=== PATIENT | male | born 1965 | race Two or more races ===

== ENCOUNTER 2016-10-09 09:39 | Inpatient (IN) | payer MEDICARE, OTHER ==
[~2016-10-09] VITALS: Ht 165.1 cm; Wt 67.8 kg
[~2016-10-09 09:39] MED LIST: BENZ1TAB70 PO; QUET300XR PO
[2016-10-09 09:57] VITALS: BP 155/93
[2016-10-09] MEDS ORDERED: ZOLPIDEM TARTRATE 10 MG TABLET PO PRN (10:15)
[2016-10-09 10:45] VITALS: BP 143/106
[2016-10-09 11:13] VITALS: BP 143/98
[2016-10-09] MEDS: CloNIDine HCL 0.1 MG TABLET PO SCH ×2 (11:19→16:57)
[2016-10-09] MEDS: LORazepam 2 MG TABLET PO PRN (11:21)
[2016-10-09] MEDS: HALOPERIDOL 5 MG TABLET PO PRN (11:21)
[2016-10-09] MEDS ORDERED: PNEUMOCOCCAL VACCINE POLYVALENT 0.5 ML VIAL [PPSV23] IM ONE (12:30)
[2016-10-09 16:17] VITALS: BP 138/86
[2016-10-09] MEDS: QUEtiapine FUMARATE 200 MG TABLET PO SCH (20:27)
[2016-10-10 07:17] VITALS: BP 122/83
[2016-10-10 08:25] VITALS: BP 126/81
[2016-10-10 08:35] LABS: BASOPHILS % (AUTO) 0.6 % (0.0-2.0); EOSINOPHILS % (AUTO) 2.9 % (1.0-6.0); HEMATOCRIT 46.6 % (41-53); HEMOGLOBIN 14.8 g/dL (13.5-17.5); LYMPHOCYTES # (AUTO) 2.2 K/uL (1.0-4.8); MEAN CORPUSCULAR HEMOGLOBIN 31.2 pg (26.0-34.0); MEAN CORPUSCULAR HGB CONC 31.8 G/dL (31.0-37.0); MEAN CORPUSCULAR VOLUME 98 fL (80-100); MONOCYTES # (AUTO) 0.5 K/uL (0.1-1.0); MONOCYTES % (AUTO) 8.3 % (2.0-9.0); NEUTROPHILS # (AUTO) 2.8 K/uL (1.8-7.7); NEUTROPHILS % (AUTO) 49.2 % (40.0-70.0); PLATELET COUNT (AUTO) 233 K/uL (150-450); RED BLOOD CELL COUNT(AUTO) 4.75 MIL/uL (4.50-5.90); RED CELL DISTRIBUTION WIDTH 13.7 % (11.5-14.5); WHITE BLOOD COUNT (AUTO) 5.7 K/uL (4.5-11.0)
[2016-10-10 09:18] LABS: ALANINE AMINOTRANSFERASE 117 U/L (12-78); ALBUMIN 3.6 g/dL (3.4-5.0); ANION GAP 9 mmol/L (8-16); ASPARTATE AMINOTRANSFERASE 65 U/L (15-37); BILIRUBIN,TOTAL 0.6 mg/dL (0.1-1.0); CALCIUM, TOTAL 8.8 mg/dL (8.8-10.5); CARBON DIOXIDE 26 mmol/L (22-29); CHLORIDE 104 mmol/L (98-107); CREATININE 0.94 mg/dL (0.60-1.30); GLOMERULAR FILTR. RATE CALC > 60 mL/min (>60); POTASSIUM 3.9 mmol/L (3.5-5.1); SODIUM SERUM 139 mmol/L (136-145); TOTAL PROTEIN, SERUM 7.1 g/dL (6.4-8.2); UREA NITROGEN, BLOOD 19 mg/dL (7-18)
[2016-10-10] MEDS: NICOTINE 21 MG/24 HOUR PATCH TD SCH (09:46)
[2016-10-10] MEDS: LORazepam 2 MG TABLET PO PRN ×2 (09:46→16:27)
[2016-10-10] MEDS: CloNIDine HCL 0.1 MG TABLET PO SCH ×2 (09:46→16:27)
[2016-10-10 16:00] VITALS: BP 133/87
[2016-10-10] MEDS: HALOPERIDOL 5 MG TABLET PO PRN (16:27)
[2016-10-10] MEDS: QUEtiapine FUMARATE 200 MG TABLET PO SCH (20:53)
[2016-10-11 07:03] VITALS: BP 136/73
[2016-10-11 08:42] VITALS: BP 112/79
[2016-10-11] MEDS: NICOTINE 21 MG/24 HOUR PATCH TD SCH (09:42)
[2016-10-11] MEDS: CloNIDine HCL 0.1 MG TABLET PO SCH ×2 (09:42→16:58)
[2016-10-11] MEDS: ALBUTEROL SULFATE HFA 90 MCG/PUFF 8 GM INHALER IH PRN (09:43)
[2016-10-11 16:00] VITALS: BP 138/78
[2016-10-11] MEDS: LORazepam 2 MG TABLET PO PRN (16:59)
[2016-10-11] MEDS: HALOPERIDOL 5 MG TABLET PO PRN (16:59)
[2016-10-11] MEDS: QUEtiapine FUMARATE 200 MG TABLET PO SCH (20:18)
[2016-10-12 06:08] VITALS: BP 139/83
[2016-10-12 08:03] VITALS: BP 128/83
[2016-10-12] MEDS: NICOTINE 21 MG/24 HOUR PATCH TD SCH (08:35)
[2016-10-12] MEDS: CloNIDine HCL 0.1 MG TABLET PO SCH ×2 (08:35→16:58)
[2016-10-12] MEDS: HALOPERIDOL 5 MG TABLET PO PRN (13:49)
[2016-10-12 16:06] VITALS: BP 140/89
[2016-10-12] MEDS: QUEtiapine FUMARATE 200 MG TABLET PO SCH (20:24)
[2016-10-13 07:16] VITALS: BP 123/68
[2016-10-13 08:36] VITALS: BP 130/85
[2016-10-13] MEDS: NICOTINE 21 MG/24 HOUR PATCH TD SCH (08:53)
[2016-10-13] MEDS: CloNIDine HCL 0.1 MG TABLET PO SCH ×2 (08:53→16:36)
[2016-10-13] MEDS: LORazepam 2 MG TABLET PO PRN ×2 (08:53→16:36)
[2016-10-13] MEDS: HALOPERIDOL 5 MG TABLET PO PRN (08:53)
[2016-10-13] MEDS: NICOTINE 14 MG/24 HOUR PATCH TD SCH (10:11)
[2016-10-13 16:09] VITALS: BP 135/82
[2016-10-13] MEDS: QUEtiapine FUMARATE 200 MG TABLET PO SCH (20:14)
[2016-10-14 06:08] VITALS: BP 139/98
[2016-10-14 08:30] VITALS: BP 127/83
[2016-10-14] MEDS: CloNIDine HCL 0.1 MG TABLET PO SCH ×2 (09:22→16:27)
[2016-10-14] MEDS: LORazepam 2 MG TABLET PO PRN (09:22)
[2016-10-14] MEDS: HALOPERIDOL 5 MG TABLET PO PRN (09:23)
[2016-10-14] MEDS: NICOTINE 14 MG/24 HOUR PATCH TD SCH (09:23)
[2016-10-14 16:28] VITALS: BP 120/75
[2016-10-14] MEDS: QUEtiapine FUMARATE 300 MG TABLET PO SCH (20:39)
[2016-10-15 02:38] VITALS: BP 111/80
[2016-10-15 08:34] VITALS: BP 133/91
[2016-10-15] MEDS: NICOTINE 14 MG/24 HOUR PATCH TD SCH (08:52)
[2016-10-15] MEDS: CloNIDine HCL 0.1 MG TABLET PO SCH ×2 (08:52→16:31)
[2016-10-15] MEDS: HALOPERIDOL 5 MG TABLET PO PRN ×2 (09:40→16:31)
[2016-10-15] MEDS: LORazepam 2 MG TABLET PO PRN ×2 (09:40→16:31)
[2016-10-15 16:00] VITALS: BP 118/86
[2016-10-15] MEDS: QUEtiapine FUMARATE 300 MG TABLET PO SCH (21:02)
[2016-10-16 06:14] VITALS: BP 102/66
[2016-10-16 08:44] LABS: APPEARANCE,URINE CLEAR (CLEAR); GLUCOSE, URINE (UA) NEGATIVE (NEGATIVE); KETONES,URINE NEGATIVE (NEGATIVE); LEUKOCYTE ESTERASE ,URINE NEGATIVE (NEGATIVE); OCCULT BLOOD,URINE NEGATIVE (NEGATIVE); PH,URINE 5.5 (5.0-8.0); PROTEIN,URINE NEGATIVE (NEGATIVE)
[2016-10-16 08:47] LABS: ADD UA MICROSCOPIC NO
[2016-10-16] MEDS: CloNIDine HCL 0.1 MG TABLET PO SCH ×2 (08:56→16:29)
[2016-10-16] MEDS: LORazepam 2 MG TABLET PO PRN ×3 (08:56→20:49)
[2016-10-16] MEDS: NICOTINE 14 MG/24 HOUR PATCH TD SCH (08:56)
[2016-10-16 09:19] VITALS: BP 124/82
[2016-10-16 16:00] VITALS: BP 116/81
[2016-10-16] MEDS: HALOPERIDOL 5 MG TABLET PO PRN (16:29)
[2016-10-16] MEDS: QUEtiapine FUMARATE 300 MG TABLET PO SCH (20:49)
[2016-10-17 01:26] VITALS: BP 138/85
[2016-10-17 08:37] VITALS: BP 115/64
[2016-10-17] MEDS: CloNIDine HCL 0.1 MG TABLET PO SCH ×2 (08:40→16:32)
[2016-10-17] MEDS: NICOTINE 14 MG/24 HOUR PATCH TD SCH (08:41)
[2016-10-17 16:23] VITALS: BP 138/87
[2016-10-17] MEDS: QUEtiapine FUMARATE 300 MG TABLET PO SCH (20:44)
[2016-10-18 00:12] VITALS: BP 105/79
[2016-10-18 09:01] VITALS: BP 116/88
[2016-10-18] MEDS: NICOTINE 14 MG/24 HOUR PATCH TD SCH (09:17)
[2016-10-18] MEDS: CloNIDine HCL 0.1 MG TABLET PO SCH ×2 (09:17→16:42)
[2016-10-18 16:16] VITALS: BP 127/63
[2016-10-18] MEDS: QUEtiapine FUMARATE 200 MG TABLET PO SCH (20:53)
[2016-10-19 00:15] VITALS: BP 134/84
[2016-10-19] MEDS: NICOTINE 14 MG/24 HOUR PATCH TD SCH (09:00)
[2016-10-19] MEDS: CloNIDine HCL 0.1 MG TABLET PO SCH ×2 (09:00→16:08)
[2016-10-19] MEDS ORDERED: HALOPERIDOL LACTATE 5 MG/ML VIAL IM ONE (09:15)
[2016-10-19] MEDS ORDERED: LORazepam 2 MG/ML VIAL IM ONE (09:15)
[2016-10-19] MEDS ORDERED: DiphenhydrAMINE HCL 50 MG/ML VIAL IM ONE (09:15)
[2016-10-19 16:05] VITALS: BP 135/95
[2016-10-19] MEDS: LORazepam 2 MG TABLET PO PRN (17:18)
[2016-10-19] MEDS: QUEtiapine FUMARATE 200 MG TABLET PO SCH (20:03)
[2016-10-20 00:15] VITALS: BP 138/86
[2016-10-20] MEDS: CloNIDine HCL 0.1 MG TABLET PO SCH ×2 (08:23→16:10)
[2016-10-20] MEDS: NICOTINE 14 MG/24 HOUR PATCH TD SCH (08:24)
[2016-10-20] MEDS: ALBUTEROL SULFATE HFA 90 MCG/PUFF 8 GM INHALER IH PRN (08:26)
[2016-10-20 08:49] VITALS: BP 128/86
[2016-10-20 16:15] VITALS: BP 141/90
[2016-10-20] MEDS: QUEtiapine FUMARATE 200 MG TABLET PO SCH (20:20)
[2016-10-21 01:00] VITALS: BP 102/61
[2016-10-21] MEDS: CloNIDine HCL 0.1 MG TABLET PO SCH ×2 (08:13→16:26)
[2016-10-21] MEDS: NICOTINE 14 MG/24 HOUR PATCH TD SCH (08:14)
[2016-10-21 08:22] VITALS: BP 111/87
[2016-10-21] MEDS: LORazepam 2 MG TABLET PO PRN (08:46)
[2016-10-21 16:00] VITALS: BP 134/90
[2016-10-21] MEDS: QUEtiapine FUMARATE 200 MG TABLET PO SCH (20:01)
[2016-10-22 00:13] VITALS: BP 128/91
[2016-10-22] MEDS: CloNIDine HCL 0.1 MG TABLET PO SCH ×2 (08:23→16:15)
[2016-10-22] MEDS: NICOTINE 14 MG/24 HOUR PATCH TD SCH (08:23)
[2016-10-22] MEDS: LORazepam 2 MG TABLET PO PRN (08:39)
[2016-10-22 08:52] VITALS: BP 129/84
[2016-10-22 16:00] VITALS: BP 141/90
[2016-10-22] MEDS: QUEtiapine FUMARATE 200 MG TABLET PO SCH (20:03)
[2016-10-23 04:35] VITALS: BP 107/85
[2016-10-23] MEDS: CloNIDine HCL 0.1 MG TABLET PO SCH ×2 (08:12→16:31)
[2016-10-23] MEDS: NICOTINE 14 MG/24 HOUR PATCH TD SCH (08:12)
[2016-10-23 08:50] VITALS: BP 119/84
[2016-10-23 16:08] VITALS: BP 165/90
[2016-10-23 17:47] VITALS: BP_SYST 122; BP_SYST 123; BP_DIAS 73
[2016-10-23] MEDS: QUEtiapine FUMARATE 200 MG TABLET PO SCH (20:08)
[2016-10-24 00:51] VITALS: BP 131/93
[2016-10-24] MEDS: NICOTINE 14 MG/24 HOUR PATCH TD SCH (08:41)
[2016-10-24] MEDS: CloNIDine HCL 0.1 MG TABLET PO SCH ×2 (08:41→16:19)
[2016-10-24 09:28] VITALS: BP 122/79
[2016-10-24 16:15] VITALS: BP 144/91
[2016-10-24] MEDS: LORazepam 2 MG TABLET PO PRN (16:21)
[2016-10-24] MEDS: QUEtiapine FUMARATE 200 MG TABLET PO SCH (20:37)
[2016-10-25 01:40] VITALS: BP 133/99
[2016-10-25] MEDS: NICOTINE 14 MG/24 HOUR PATCH TD SCH (08:43)
[2016-10-25] MEDS: CloNIDine HCL 0.1 MG TABLET PO SCH ×2 (08:43→16:42)
[2016-10-25 08:44] VITALS: BP 147/73
[2016-10-25 16:18] VITALS: BP 141/92
[2016-10-25 20:30] VITALS: BP 138/90
[2016-10-25] MEDS: QUEtiapine FUMARATE 200 MG TABLET PO SCH (20:35)
[2016-10-26 00:13] VITALS: BP 136/87
[2016-10-26 08:14] VITALS: BP 122/84
[2016-10-26] MEDS: CloNIDine HCL 0.1 MG TABLET PO SCH ×2 (08:31→16:05)
[2016-10-26] MEDS: NICOTINE 14 MG/24 HOUR PATCH TD SCH (08:31)
[2016-10-26] MEDS: LORazepam 2 MG TABLET PO PRN (16:05)
[2016-10-26 18:31] VITALS: BP 133/89
[2016-10-26] MEDS: QUEtiapine FUMARATE 200 MG TABLET PO SCH (20:06)
[2016-10-27 00:34] VITALS: BP 147/91
[2016-10-27] MEDS: CloNIDine HCL 0.1 MG TABLET PO SCH ×2 (08:38→16:40)
[2016-10-27] MEDS: NICOTINE 14 MG/24 HOUR PATCH TD SCH (08:38)
[2016-10-27 08:54] VITALS: BP 122/78
[2016-10-27 20:00] VITALS: BP 148/94
[2016-10-27] MEDS: QUEtiapine FUMARATE 200 MG TABLET PO SCH (20:42)
[2016-10-27] MEDS: LORazepam 2 MG TABLET PO PRN (22:18)
[2016-10-28] VITALS: BP 129/92
[2016-10-28 08:10] VITALS: BP 123/78
[2016-10-28] MEDS: CloNIDine HCL 0.1 MG TABLET PO SCH ×2 (08:11→16:21)
[2016-10-28] MEDS: NICOTINE 14 MG/24 HOUR PATCH TD SCH (08:12)
[2016-10-28 16:00] VITALS: BP 160/110
[2016-10-28 18:30] VITALS: BP 164/98
[2016-10-28 19:30] VITALS: BP 128/85
[2016-10-28] MEDS: QUEtiapine FUMARATE 200 MG TABLET PO SCH (21:41)
[2016-10-29 00:01] VITALS: BP 122/89
[2016-10-29] MEDS: NICOTINE 14 MG/24 HOUR PATCH TD SCH (08:25)
[2016-10-29] MEDS: CloNIDine HCL 0.1 MG TABLET PO SCH ×2 (08:25→16:47)
[2016-10-29 08:28] VITALS: BP 126/91
[2016-10-29] MEDS: QUEtiapine FUMARATE 200 MG TABLET PO SCH ×2 (10:03→20:59)
[2016-10-29 16:21] VITALS: BP 116/94
[2016-10-30 00:13] VITALS: BP 132/92
[2016-10-30 08:13] VITALS: BP 127/78
[2016-10-30] MEDS: QUEtiapine FUMARATE 200 MG TABLET PO SCH ×2 (08:28→20:34)
[2016-10-30] MEDS: NICOTINE 14 MG/24 HOUR PATCH TD SCH (08:28)
[2016-10-30] MEDS: CloNIDine HCL 0.1 MG TABLET PO SCH ×2 (08:28→16:42)
[2016-10-30 16:11] VITALS: BP 146/92
[2016-10-31 00:28] VITALS: BP 140/89
[2016-10-31 08:36] VITALS: BP 133/90
[2016-10-31] MEDS: NICOTINE 14 MG/24 HOUR PATCH TD SCH (08:37)
[2016-10-31] MEDS: QUEtiapine FUMARATE 200 MG TABLET PO SCH ×2 (08:37→20:16)
[2016-10-31] MEDS: CloNIDine HCL 0.1 MG TABLET PO SCH ×2 (08:37→16:28)
[2016-10-31] MEDS: LORazepam 2 MG TABLET PO PRN (08:41)
[2016-10-31 16:13] VITALS: BP 103/75
[2016-11-01 00:18] VITALS: BP 110/85
[2016-11-01 08:22] VITALS: BP 130/94
[2016-11-01] MEDS: QUEtiapine FUMARATE 200 MG TABLET PO SCH ×2 (08:23→20:47)
[2016-11-01] MEDS: CloNIDine HCL 0.1 MG TABLET PO SCH ×2 (08:23→17:13)
[2016-11-01] MEDS: NICOTINE 14 MG/24 HOUR PATCH TD SCH (08:23)
[2016-11-01] MEDS: LORazepam 2 MG TABLET PO PRN (08:29)
[2016-11-01] MEDS: DIVALPROEX SODIUM 500 MG DR TABLET PO SCH ×2 (09:37→20:47)
[2016-11-01 16:11] VITALS: BP 120/90
[2016-11-02 00:01] VITALS: BP 140/91
[2016-11-02] MEDS: LORazepam 2 MG TABLET PO PRN (00:04)
[2016-11-02 06:15] VITALS: BP 134/89
[2016-11-02 07:12] LABS: GLUCOSE,POINT OF CARE 92 MG/DL (70-110)
[2016-11-02 08:20] VITALS: BP 145/59
[2016-11-02] MEDS: DIVALPROEX SODIUM 500 MG DR TABLET PO SCH ×2 (08:20→20:35)
[2016-11-02] MEDS: CloNIDine HCL 0.1 MG TABLET PO SCH ×2 (08:20→16:37)
[2016-11-02] MEDS: QUEtiapine FUMARATE 200 MG TABLET PO SCH ×2 (08:20→20:35)
[2016-11-02] MEDS: NICOTINE 14 MG/24 HOUR PATCH TD SCH (08:21)
[2016-11-02 16:17] VITALS: BP 142/78
[2016-11-03 03:08] VITALS: BP 137/94
[2016-11-03] MEDS: DIVALPROEX SODIUM 500 MG DR TABLET PO SCH ×2 (08:10→20:12)
[2016-11-03] MEDS: CloNIDine HCL 0.1 MG TABLET PO SCH ×2 (08:10→16:13)
[2016-11-03] MEDS: QUEtiapine FUMARATE 200 MG TABLET PO SCH ×2 (08:10→20:12)
[2016-11-03] MEDS: NICOTINE 14 MG/24 HOUR PATCH TD SCH (08:11)
[2016-11-03] MEDS: LORazepam 2 MG TABLET PO PRN (08:11)
[2016-11-03 10:11] VITALS: BP 136/70
[2016-11-03 16:14] VITALS: BP 132/86
[2016-11-04 06:04] VITALS: BP 136/87
[2016-11-04 06:07] LABS: GLUCOSE,POINT OF CARE 92 MG/DL (70-110)
[2016-11-04] MEDS: CloNIDine HCL 0.1 MG TABLET PO SCH ×2 (08:21→16:12)
[2016-11-04] MEDS: QUEtiapine FUMARATE 200 MG TABLET PO SCH ×2 (08:21→20:11)
[2016-11-04] MEDS: DIVALPROEX SODIUM 500 MG DR TABLET PO SCH ×2 (08:21→20:11)
[2016-11-04] MEDS: NICOTINE 14 MG/24 HOUR PATCH TD SCH (08:22)
[2016-11-04 08:28] VITALS: BP 135/92
[2016-11-04 16:09] VITALS: BP 139/94
[2016-11-04] MEDS ORDERED: BENZOCAINE/MENTHOL LOZENGE PO PRN (20:45)
[2016-11-05 04:49] VITALS: BP 130/90
[2016-11-05 06:37] LABS: GLUCOSE,POINT OF CARE 136 MG/DL (70-110)
[2016-11-05 08:12] VITALS: BP 135/93
[2016-11-05] MEDS: CloNIDine HCL 0.1 MG TABLET PO SCH ×2 (08:48→16:38)
[2016-11-05] MEDS: QUEtiapine FUMARATE 200 MG TABLET PO SCH ×2 (08:48→20:41)
[2016-11-05] MEDS: NICOTINE 14 MG/24 HOUR PATCH TD SCH (08:48)
[2016-11-05] MEDS: DIVALPROEX SODIUM 500 MG DR TABLET PO SCH ×2 (08:48→20:41)
[2016-11-05 16:36] VITALS: BP 138/92
[2016-11-06 06:27] LABS: GLUCOSE,POINT OF CARE 93 MG/DL (70-110)
[2016-11-06 06:57] VITALS: BP 126/74
[2016-11-06] MEDS: CloNIDine HCL 0.1 MG TABLET PO SCH ×2 (08:04→16:38)
[2016-11-06] MEDS: QUEtiapine FUMARATE 200 MG TABLET PO SCH ×2 (08:04→21:08)
[2016-11-06] MEDS: DIVALPROEX SODIUM 500 MG DR TABLET PO SCH ×2 (08:04→21:08)
[2016-11-06] MEDS: NICOTINE 14 MG/24 HOUR PATCH TD SCH (08:05)
[2016-11-06 08:15] VITALS: BP 138/89
[2016-11-06 16:15] VITALS: BP 136/90
[2016-11-07 06:25] VITALS: BP 136/89
[2016-11-07 06:37] LABS: GLUCOSE,POINT OF CARE 118 MG/DL (70-110)
[2016-11-07 08:20] VITALS: BP 117/78
[2016-11-07] MEDS: CloNIDine HCL 0.1 MG TABLET PO SCH ×2 (09:04→16:38)
[2016-11-07] MEDS: DIVALPROEX SODIUM 500 MG DR TABLET PO SCH ×2 (09:04→20:39)
[2016-11-07] MEDS: QUEtiapine FUMARATE 200 MG TABLET PO SCH ×2 (09:04→20:39)
[2016-11-07] MEDS: NICOTINE 14 MG/24 HOUR PATCH TD SCH (09:04)
[2016-11-07 16:18] VITALS: BP 139/83
[2016-11-08 01:51] VITALS: BP 138/93
[2016-11-08 06:17] LABS: GLUCOSE,POINT OF CARE 103 MG/DL (70-110)
[2016-11-08 08:22] VITALS: BP 137/82
[2016-11-08] MEDS: QUEtiapine FUMARATE 200 MG TABLET PO SCH ×2 (09:10→20:40)
[2016-11-08] MEDS: DIVALPROEX SODIUM 500 MG DR TABLET PO SCH ×2 (09:10→20:39)
[2016-11-08] MEDS: CloNIDine HCL 0.1 MG TABLET PO SCH ×2 (09:10→16:41)
[2016-11-08] MEDS: NICOTINE 14 MG/24 HOUR PATCH TD SCH (09:11)
[2016-11-08 16:17] VITALS: BP 123/89
[2016-11-09 06:22] LABS: GLUCOSE,POINT OF CARE 89 MG/DL (70-110)
[2016-11-09 07:23] VITALS: BP 142/96
[2016-11-09 08:24] VITALS: BP 135/80
[2016-11-09] MEDS: DIVALPROEX SODIUM 500 MG DR TABLET PO SCH ×2 (08:28→20:01)
[2016-11-09] MEDS: CloNIDine HCL 0.1 MG TABLET PO SCH ×2 (08:28→16:02)
[2016-11-09] MEDS: NICOTINE 14 MG/24 HOUR PATCH TD SCH (08:28)
[2016-11-09] MEDS: QUEtiapine FUMARATE 200 MG TABLET PO SCH ×2 (08:28→20:01)
[2016-11-09 16:00] VITALS: BP 129/90
[2016-11-10 06:32] LABS: GLUCOSE,POINT OF CARE 105 MG/DL (70-110)
[2016-11-10 07:08] VITALS: BP 136/88
[2016-11-10] MEDS: CloNIDine HCL 0.1 MG TABLET PO SCH ×2 (08:13→16:49)
[2016-11-10] MEDS: NICOTINE 14 MG/24 HOUR PATCH TD SCH (08:14)
[2016-11-10] MEDS: DIVALPROEX SODIUM 500 MG DR TABLET PO SCH ×2 (08:14→20:34)
[2016-11-10] MEDS: QUEtiapine FUMARATE 200 MG TABLET PO SCH ×2 (08:14→20:34)
[2016-11-10 08:27] VITALS: BP 128/84
[2016-11-10 16:16] VITALS: BP 140/90
[2016-11-11 05:31] VITALS: BP 139/89
[2016-11-11 08:47] VITALS: BP 142/86
[2016-11-11] MEDS: DIVALPROEX SODIUM 500 MG DR TABLET PO SCH ×2 (08:52→20:32)
[2016-11-11] MEDS: NICOTINE 14 MG/24 HOUR PATCH TD SCH (08:53)
[2016-11-11] MEDS: QUEtiapine FUMARATE 200 MG TABLET PO SCH ×2 (08:53→20:32)
[2016-11-11] MEDS: CloNIDine HCL 0.1 MG TABLET PO SCH ×2 (08:53→16:40)
[2016-11-11 12:58] VITALS: BP 125/95
[2016-11-11 16:23] VITALS: BP 122/82
[2016-11-12 05:09] VITALS: BP 126/90
[2016-11-12 06:22] LABS: GLUCOSE,POINT OF CARE 100 MG/DL (70-110)
[2016-11-12] MEDS: DIVALPROEX SODIUM 500 MG DR TABLET PO SCH ×2 (08:41→20:35)
[2016-11-12] MEDS: CloNIDine HCL 0.1 MG TABLET PO SCH ×2 (08:41→16:39)
[2016-11-12] MEDS: NICOTINE 14 MG/24 HOUR PATCH TD SCH (08:41)
[2016-11-12] MEDS: QUEtiapine FUMARATE 200 MG TABLET PO SCH ×2 (08:41→20:35)
[2016-11-12 08:55] VITALS: BP 145/98
[2016-11-12 10:00] VITALS: BP 124/90
[2016-11-12 16:30] VITALS: BP 161/98
[2016-11-12] MEDS: LORazepam 2 MG TABLET PO PRN (17:47)
[2016-11-12 18:07] VITALS: BP 141/90
[2016-11-12 20:13] VITALS: BP 119/86
[2016-11-13 00:15] VITALS: BP 138/78
[2016-11-13 06:37] LABS: GLUCOSE,POINT OF CARE 92 MG/DL (70-110)
[2016-11-13 08:00] VITALS: BP 123/81
[2016-11-13] MEDS: CloNIDine HCL 0.1 MG TABLET PO SCH ×2 (09:34→16:57)
[2016-11-13] MEDS: QUEtiapine FUMARATE 200 MG TABLET PO SCH ×2 (09:34→20:46)
[2016-11-13] MEDS: NICOTINE 14 MG/24 HOUR PATCH TD SCH (09:35)
[2016-11-13] MEDS: DIVALPROEX SODIUM 500 MG DR TABLET PO SCH ×2 (09:35→20:46)
[2016-11-13 16:32] VITALS: BP 135/86
[2016-11-14 03:45] VITALS: BP 148/93
[2016-11-14] MEDS: LORazepam 2 MG TABLET PO PRN (03:50)
[2016-11-14 06:37] LABS: GLUCOSE,POINT OF CARE 82 MG/DL (70-110)
[2016-11-14] MEDS: QUEtiapine FUMARATE 200 MG TABLET PO SCH ×2 (08:47→21:14)
[2016-11-14] MEDS: CloNIDine HCL 0.1 MG TABLET PO SCH ×2 (08:47→16:14)
[2016-11-14] MEDS: DIVALPROEX SODIUM 500 MG DR TABLET PO SCH ×2 (08:47→21:14)
[2016-11-14] MEDS: NICOTINE 14 MG/24 HOUR PATCH TD SCH (08:47)
[2016-11-14 11:00] VITALS: BP 139/98
[2016-11-14 16:47] VITALS: BP 137/92
[2016-11-15] MEDS: LORazepam 2 MG TABLET PO PRN (00:10)
[2016-11-15 06:28] VITALS: BP 139/98
[2016-11-15 06:47] LABS: GLUCOSE,POINT OF CARE 94 MG/DL (70-110)
[2016-11-15] MEDS: CloNIDine HCL 0.1 MG TABLET PO SCH (08:45)
[2016-11-15] MEDS: NICOTINE 14 MG/24 HOUR PATCH TD SCH (08:46)
[2016-11-15] MEDS: DIVALPROEX SODIUM 500 MG DR TABLET PO SCH (08:46)
[2016-11-15] MEDS: QUEtiapine FUMARATE 200 MG TABLET PO SCH (08:46)
[2016-11-15] MEDS ORDERED: DIVA500T35 PO (10:02)
[2016-11-15] MEDS ORDERED: CLON.2 PO (10:02)
[2016-11-15] MEDS ORDERED: QUET200T PO (10:02)
== END 2016-11-15 12:00 | disposition home or self-care (01) | DRG 885 ==
LOC: B3A 10:05 → B2X 10-16 21:20 → B2S 11-13 14:48
DX: F25.0 Schizoaffective disorder, bipolar type (principal); F12.90 Cannabis use, unspecified, uncomplicated; J44.9 Chronic obstructive pulmonary disease, unspecified; F17.200 Nicotine dependence, unspecified, uncomplicated
CPT/HCPCS: 80307; 82962; 83036; 87081; J1200; J1630; J2060; J3535

== ENCOUNTER 2017-09-03 20:21 | Emergency (ER) | payer MEDICAID, MEDICARE ==
[~2017-09-03] VITALS: Ht 170.2 cm; Wt 68.2 kg
[~2017-09-03 20:21] MED LIST changes: -BENZ1TAB70 PO; +CLON.2 PO; +DIVA500T35 PO; +QUET200T PO; -QUET300XR PO
[2017-09-03 20:57] LABS: BASOPHILS % (AUTO) 0.6 % (0.0-2.0); EOSINOPHILS % (AUTO) 1.7 % (1.0-6.0); HEMATOCRIT 39.9 % (41-53); HEMOGLOBIN 13.8 g/dL (13.5-17.5); LYMPHOCYTES # (AUTO) 3.1 K/uL (1.0-4.8); LYMPHOCYTES % (AUTO) 24.3 % (22.0-44.0); MEAN CORPUSCULAR HEMOGLOBIN 31.8 pg (26.0-34.0); MEAN CORPUSCULAR HGB CONC 34.7 G/dL (31.0-37.0); MEAN CORPUSCULAR VOLUME 92 fL (80-100); MONOCYTES # (AUTO) 1.5 K/uL (0.1-1.0); MONOCYTES % (AUTO) 11.8 % (2.0-9.0); NEUTROPHILS # (AUTO) 7.8 K/uL (1.8-7.7); NEUTROPHILS % (AUTO) 61.6 % (40.0-70.0); PLATELET COUNT (AUTO) 358 K/uL (150-450); RED BLOOD CELL COUNT(AUTO) 4.35 MIL/uL (4.50-5.90); RED CELL DISTRIBUTION WIDTH 13.8 % (11.5-14.5)
[2017-09-03 21:11] LABS: ANION GAP 8 mmol/L (8-16); CALCIUM, TOTAL 9.3 mg/dL (8.8-10.5); CARBON DIOXIDE 31 mmol/L (22-29); CHLORIDE 102 mmol/L (98-107); CREATININE 0.85 mg/dL (0.60-1.30); GLOMERULAR FILTR. RATE CALC > 60 mL/min (>60); GLUCOSE,RANDOM 126 mg/dL (70-110); POTASSIUM 3.2 mmol/L (3.5-5.1); SODIUM SERUM 141 mmol/L (136-145); UREA NITROGEN, BLOOD 14 mg/dL (7-18)
[2017-09-03 21:15] LABS: ALANINE AMINOTRANSFERASE 105 U/L (12-78); ALBUMIN 3.6 g/dL (3.4-5.0); ALKALINE PHOSPHATASE 83 U/L (46-116); ASPARTATE AMINOTRANSFERASE 36 U/L (15-37); BILIRUBIN,TOTAL 0.4 mg/dL (0.1-1.0); LIPASE 52 U/L (73-393); TOTAL PROTEIN, SERUM 8.2 g/dL (6.4-8.2)
[2017-09-03] MEDS ORDERED: IPRATROPIUM BROMIDE 0.5 MG/2.5 ML NEB SOLUTION NEB ONE (21:45)
[2017-09-03] MEDS ORDERED: ALBUTEROL SULFATE 2.5 MG/0.5 ML NEB SOLUTION NEB ONE (21:45)
[2017-09-03] MEDS ORDERED: ACETAMINOPHEN 500 MG TABLET PO ONE (21:45)
[2017-09-03] MEDS ORDERED: LORazepam 2 MG TABLET PO ONE (21:45)
[2017-09-03 22:44] LABS: APPEARANCE,URINE CLEAR (CLEAR); BILIRUBIN,URINE NEGATIVE (NEGATIVE); GLUCOSE, URINE (UA) NEGATIVE (NEGATIVE); KETONES,URINE NEGATIVE (NEGATIVE); LEUKOCYTE ESTERASE ,URINE NEGATIVE (NEGATIVE); NITRATE,URINE NEGATIVE (NEGATIVE); OCCULT BLOOD,URINE NEGATIVE (NEGATIVE); PH,URINE 5.5 (5.0-8.0); PROTEIN,URINE NEGATIVE (NEGATIVE); UROBILINOGEN,URINE 0.2 mg/dL (<=1.0)
[2017-09-03] MEDS ORDERED: HALO5 PO (23:12)
[2017-09-03] MEDS ORDERED: QUET25TA PO (23:12)
[2017-09-03] MEDS ORDERED: HYOS0.124 SL (23:12)
[2017-09-03] MEDS ORDERED: LORA0.5T2 PO (23:12)
[2017-09-03] MEDS ORDERED: BENZ1TAB10 PO (23:12)
[2017-09-03] MEDS ORDERED: MORP5L PO (23:12)
[2017-09-03] MEDS ORDERED: PROP80SR PO (23:12)
[2017-09-03] MEDS ORDERED: POTASSIUM CHLORIDE 10% 40 MEQ/30 ML LIQUID UDCUP PO ONE (23:30)
[2017-09-04 00:06] VITALS: BP 132/89
== END 2017-09-04 03:32 | disposition home or self-care (01) ==
LOC: EMS 20:22
DX: J44.1 Chronic obstructive pulmonary disease with (acute) exacerbation (principal); C32.9 Malignant neoplasm of larynx, unspecified; F41.9 Anxiety disorder, unspecified; E87.6 Hypokalemia; F20.9 Schizophrenia, unspecified; F17.210 Nicotine dependence, cigarettes, uncomplicated; Z79.899 Other long term (current) drug therapy; Z71.6 Tobacco abuse counseling; Z98.890 Other specified postprocedural states
CPT/HCPCS: 36415; 71045; 80053; 81003; 83690; 84484; 85025; 94640; 99285; 99406; J7613

== ENCOUNTER 2017-09-04 17:32 | Emergency (ER) | payer MEDICAID ==
[~2017-09-04] VITALS: Ht 170.2 cm; Wt 66.0 kg
[~2017-09-04 17:32] MED LIST changes: +BENZ1TAB10 PO; -CLON.2 PO; -DIVA500T35 PO; +HALO5 PO; +HYOS0.124 SL; +LORA0.5T2 PO; +MORP5L PO; +PROP80SR PO; -QUET200T PO; +QUET25TA PO
[2017-09-04] MEDS ORDERED: ALBUTEROL SULFATE 2.5 MG/0.5 ML NEB SOLUTION NEB ONE (18:15)
[2017-09-04] MEDS ORDERED: IPRATROPIUM BROMIDE 0.5 MG/2.5 ML NEB SOLUTION NEB ONE (18:15)
[2017-09-04 18:55] VITALS: BP 143/99
== END 2017-09-04 19:05 | disposition home or self-care (01) ==
LOC: EMS 17:33
DX: Z43.0 Encounter for attention to tracheostomy (principal); F41.9 Anxiety disorder, unspecified; F20.9 Schizophrenia, unspecified; C80.1 Malignant (primary) neoplasm, unspecified; F17.210 Nicotine dependence, cigarettes, uncomplicated; F12.10 Cannabis abuse, uncomplicated
CPT/HCPCS: 94640; 99283; J7613